=== PATIENT | female | born 1980 | race Two or more races ===

== ENCOUNTER → 2024-02-27 | Emergency (ER) | payer OTHER ==
[~2024-02-27] VITALS: Ht 167.6 cm; Wt 74.4 kg
[~2024-02-27] MED LIST: CRESTOR10 MG PO
== END | disposition home or self-care (01) ==
LOC: ER 09:43
DX: S99.812A Other specified injuries of left ankle, initial encounter (principal); X58.XXXA Exposure to other specified factors, initial encounter; Y93.89 Activity, other specified; Y92.89 Other specified places as the place of occurrence of the external cause; Y99.9 Unspecified external cause status; M72.2 Plantar fascial fibromatosis